=== PATIENT | female | born 1940 ===

== ENCOUNTER 2019-06-10 06:00 | Day surgery (SDC) | payer OTHER ==
[~2019-06-10 06:00] MED LIST: ATORVASTATIN CA40 MG PO; ELIQUIS5 MG PO; LOSARTAN POTASS25 MG PO; TOPROL XL25 M1 PO
[2019-06-10] MEDS ORDERED: IBU400 MG PO (11:05)
== END 2019-06-10 15:40 | disposition home or self-care (01) ==
LOC: CIR.AMB 06:00 → ADM 09:45 → CIR.AMB 09:45
DX: N84.0 Polyp of corpus uteri (principal)